=== PATIENT | female | born 1980 | race Caucasian/White ===

== ENCOUNTER 2017-08-20 06:27 | Emergency (ER) | payer BC ==
[~2017-08-20] VITALS: Ht 162.6 cm; Wt 65.8 kg
[2017-08-20 06:41] VITALS: Ht 162.6 cm; Wt 65.8 kg
[2017-08-20] MEDS ORDERED: FLINTSTONE1 TAB.CHEW PO (06:42)
[2017-08-20] MEDS ORDERED: birth control (06:42)
[2017-08-20] MEDS ORDERED: LISINOPRIL10 MG PO (06:42)
[2017-08-20] MEDS ORDERED: OMEPRAZOLE20 M1 PO (06:43)
[2017-08-20 08:00] LABS: APPEARANCE CLEAR (CLEAR); BILIRUBIN NEGATIVE (NEGATIVE); COLOR YELLOW (YELLOW); GLUCOSE NEGATIVE (NEGATIVE); KETONE NEGATIVE (NEGATIVE); NITRITE NEGATIVE (NEGATIVE); PROTEIN NEGATIVE (NEGATIVE); UROBILINOGEN NORMAL (NORMAL)
[2017-08-20 08:01] LABS: BACTERIA FEW /hpf (NONE SEEN); EPITHELIAL CELLS 0-5 /hpf (0-5); RED CELLS - URINE 0-5 /hpf (0-5); WHITE CELLS - URINE 0-5 /hpf (0-5)
[2017-08-20 08:06] LABS: BASOPHILS 0.2 % (0-2); EOSINOPHILS 0.9 % (0-7); HEMATOCRIT 41.7 % (36.0-48.0); HEMOGLOBIN 14.1 g/dL (12-16); IMMATURE GRANULOCYTES 0.2 % (0-5); MCH 32.4 pg (26.0-34.0); MCHC 33.8 g/dL (31.0-37.0); MCV 95.9 fL (80.0-100.0); MONOCYTES 5.5 % (2-11); NEUTROPHILS 77.2 % (40-80); PLATELET COUNT 185 10x3/uL (130-400); RBC 4.35 10x6/uL (4.00-5.40); RDW 12.8 % (11.5-14.5); WBC 5.4 10x3/uL (4.8-10.8)
[2017-08-20 08:16] LABS: HCG SERUM NEGATIVE (NEGATIVE)
[2017-08-20 08:21] LABS: ALBUMIN 3.8 g/dL (3.4-5.0); ALKALINE PHOSPHATASE 42 U/L (46-116); ALT (SGPT) 23 U/L (10-68); AMYLASE - SERUM 98 U/L (25-115); BILIRUBIN - TOTAL 0.36 mg/dL (0.2-1.3); CALC OSMOLALITY 279 mosm/kg (275-300); CALCIUM 8.9 mg/dL (8.5-10.1); CARBON DIOXIDE 29.2 mmol/L (21.0-32.0); CHLORIDE - SERUM 104 mmol/L (98-107); CREATININE - SERUM 0.8 mg/dL (0.6-1.3); GLUCOSE 78 mg/dL (74-106); LIPASE 310 U/L (73-393); POTASSIUM - SERUM 4.7 mmol/L (3.5-5.1); PROTEIN - SERUM 7.4 g/dL (6.4-8.2); SODIUM 139 mmol/L (136-145); UREA NITROGEN 21 mg/dL (7-18); eGFR NON AFRICAN AMERICAN 85 mL/min (90-120)
[2017-08-20] MEDS ORDERED: ZOFRAN ODT4 MG/UDTAB PO (08:41)
[2017-08-20 08:58] VITALS: BP 120/85
== END 2017-08-20 08:59 | disposition home or self-care (01) ==
LOC: D.ER 06:27
PROVIDERS: Family Medicine
DX: A08.4 Viral intestinal infection, unspecified (principal); R10.9 Unspecified abdominal pain; I10 Essential (primary) hypertension

== ENCOUNTER 2017-12-11 05:43 | Emergency (ER) | payer BC ==
[~2017-12-11] VITALS: Ht 162.6 cm; Wt 65.9 kg
[~2017-12-11 05:43] MED LIST: FLINTSTONE1 TAB.CHEW PO; LISINOPRIL10 MG PO; OMEPRAZOLE20 M1 PO; ZOFRAN ODT4 MG/UDTAB PO; birth control
[2017-12-11 05:57] VITALS: Ht 162.6 cm; Wt 65.9 kg
[2017-12-11 06:51] LABS: BASOPHILS 0.2 % (0-2); EOSINOPHILS 1.1 % (0-7); HEMATOCRIT 40.7 % (36.0-48.0); HEMOGLOBIN 13.7 g/dL (12-16); IMMATURE GRANULOCYTES 0.4 % (0-5); LYMPHOCYTES 16.1 % (15-50); MCH 32.3 pg (26.0-34.0); MCHC 33.7 g/dL (31.0-37.0); MEAN PLATELET VOLUME 9.2 fL (7.4-10.4); MONOCYTES 7.1 % (2-11); NEUTROPHILS 75.1 % (40-80); PLATELET COUNT 193 10x3/uL (130-400); RBC 4.24 10x6/uL (4.00-5.40); RDW 12.5 % (11.5-14.5); WBC 5.4 10x3/uL (4.8-10.8)
[2017-12-11 07:13] LABS: HCG URINE NEGATIVE (NEGATIVE)
[2017-12-11 07:18] LABS: APPEARANCE CLEAR (CLEAR); BILIRUBIN NEGATIVE (NEGATIVE); COLOR YELLOW (YELLOW); EPITHELIAL CELLS 0-5 /hpf (0-5); GLUCOSE NEGATIVE (NEGATIVE); KETONE NEGATIVE (NEGATIVE); NITRITE NEGATIVE (NEGATIVE); PROTEIN NEGATIVE (NEGATIVE); RED CELLS - URINE OCC /hpf (0-5); SPECIFIC GRAVITY 1.015 (1.005-1.020); UROBILINOGEN NORMAL (NORMAL); WHITE CELLS - URINE NSEEN /hpf (0-5)
[2017-12-11 07:27] LABS: ALBUMIN 3.3 g/dL (3.4-5.0); ANION GAP 10.5 mmol/L (8-16); BILIRUBIN - TOTAL 0.37 mg/dL (0.2-1.3); CALCIUM 8.5 mg/dL (8.5-10.1); CARBON DIOXIDE 26.7 mmol/L (21.0-32.0); CREATININE - SERUM 0.9 mg/dL (0.6-1.3); POTASSIUM - SERUM 4.2 mmol/L (3.5-5.1); PROTEIN - SERUM 7.2 g/dL (6.4-8.2)
[2017-12-11] MEDS ORDERED: ACETAMINOPHEN500 M1 PO (09:51)
[2017-12-11] MEDS ORDERED: CYCLOBENZAPRINE10 MG PO (09:51)
[2017-12-11] MEDS ORDERED: IBUPROFEN800 MG PO (09:51)
[2017-12-11 10:37] VITALS: BP 123/87
== END 2017-12-11 10:28 | disposition home or self-care (01) ==
LOC: D.ER 05:43
PROVIDERS: Family Medicine
DX: N83.201 Unspecified ovarian cyst, right side (principal); R10.9 Unspecified abdominal pain; R11.2 Nausea with vomiting, unspecified; R19.7 Diarrhea, unspecified; I10 Essential (primary) hypertension